=== PATIENT | female | born 1990 ===

== ENCOUNTER 2016-08-19 21:10 | Emergency (ER) | payer SELFPAY ==
[2016-08-19] MEDS ORDERED: IOPAMIDOL 370 (76%) 100 ML VIAL IV ONE (21:11)
[2016-08-19] MEDS ORDERED: KETOROLAC TROMETHAMINE 30 MG/ML 1 ML VIAL ONE (22:02)
[2016-08-19] MEDS ORDERED: ONDANSETRON 4 MG/2ML 2 ML VIAL ONE (22:02)
[2016-08-19 22:12] LABS: ABSOLUTE NEUTROPHIL COUNT 7.3 K/mm3 (1.8-7.7); BASO % 0.2 % (0.2-1.0); EOS # 0.2 (0.0-0.5); EOS % 2.3 % (0.9-2.9); HEMATOCRIT 36.5 % (37.0-47.0); IMM NEUT% 0.3 % (0-1); LYMPH # 1.9 (1.0-4.8); LYMPH % 19.4 % (15-45); MEAN CELL VOLUME 90.3 fl (81.0-99.0); MEAN CORPUSCULAR HEMOGLOBIN 29.7 pg (27.0-31.0); MEAN CORPUSCULAR HGB CONC 32.9 g/dl (33.0-37.0); MEAN PLATELET VOLUME 10.6 fl (7.4-10.4); MONO # 0.4 (0.0-0.8); MONO % 4.3 % (4-12); NEUT % 73.5 % (43-75); PLATELET COUNT 248 K/mm3 (130-400); RED CELL DISTRIBUTION WIDTH 12.7 % (11.5-14.5)
[2016-08-19 22:26] LABS: ALB/GLOB RATIO 1.3 (>1.0); ALBUMIN 4.5 gm/dL (3.5-5.7); CALCIUM 9.3 mg/dL (8.6-10.3)
[2016-08-19 23:41] LABS: SPECIFIC GRAVITY 1.015 (1.001-1.030); URINE BILIRUBIN NEGATIVE (NEGATIVE); URINE BLOOD 2+ (NEGATIVE); URINE GLUCOSE (UA) NEGATIVE (NEGATIVE); URINE LEUKOCYTE ESTERASE 2+ (NEGATIVE); URINE NITRITE NEGATIVE (NEGATIVE); URINE PROTEIN 2+ (NEGATIVE); URINE UROBILINOGEN NORMAL (0-1 mg/dl)
[2016-08-19 23:42] LABS: URINE APPEARANCE HAZY; URINE COLOR AMBER
[2016-08-19 23:44] LABS: HCG,QUALITATIVE URINE NEGATIVE
[2016-08-19 23:53] LABS: URINE WBC 30-40 /hpf
[2016-08-19 23:54] LABS: URINE BACTERIA 1+; URINE MUCUS 2+
[2016-08-20] MEDS ORDERED: CEFTRIAXONE SODIUM 1 G VIAL ONE (02:14)
--- NOTE | 2016-08-20 06:39 | CT ---
ABD/PELVIS W/ CON COMPARISON: None. HISTORY: Acute right lateral abdominal pain radiating to her groin, onset 2 hours prior to arrival urinalysis positive for urinary tract infection.. Technique: Intravenous injection 100 mL Isovue 370. Using a TosPolimetrix Aquilion [address] scanner, images were obtained from the diaphragm to the floor the pelvis. An automated dose reduction technique was used to minimize patient radiation dose. Dose information: CTDIvol (mGy): 13.50 DLP(mGycm): 685.40 FINDINGS: Lung bases: Normal. Inferior mediastinum and heart: Normal. Liver: Normal. Gallbladder:Normal. Bile ducts: Normal. Pancreas: Normal. Spleen: Normal. Adrenal glands: Normal. Kidneys: Normal. Ureters: Normal Urinary bladder: The bladder wall is uniformly thickened, but the bladder is not distended with urine. Uterus and adnexa: Normal. Blood vessels: Normal Lymph nodes: Normal Stomach: Normal Duodenum: Normal Small intestine: Normal Appendix: Normal Colon: Normal Abdominal wall and supporting musculature: Normal Bones: Normal IMPRESSION: 1. Uniformly thickened bladder wall, differential diagnosis cystitis or nondistended bladder. No hydronephrosis or stones. Preliminary report by [employer] radiologist Corey Munson MD 08/20/2016 at 00:31
== END 2016-08-20 02:51 | disposition home or self-care (01) ==
LOC: ED 21:10
DX: N39.0 Urinary tract infection, site not specified (principal)
CPT/HCPCS: 83690; 81025; 82150; 85025; 87086; 80053; 81001; 74177; 96375 ×2; 99284 ×2; 96374; J0696; J1885; J2405; Q9967